=== PATIENT | female | born 1990 | race Caucasian/White ===

== ENCOUNTER 2023-11-25 20:17 | Emergency (ER) | payer SELFPAY ==
[2023-11-25 20:43] VITALS: BP 114/79; PULSE 85; RESP 16; TEMP 37; O2SAT 98; BMI 21.1
[2023-11-25] MEDS: lidocaine 2% INJ 20 mL INJECTION (22:25)
[2023-11-25] MEDS: tetanus-dipt-pertussis 0.5 mL SDV IM (22:25)
[2023-11-25] MEDS: cephALEXin 500 mg Capsule PO (22:25)
--- NOTE | 2023-11-25 22:28 | PC.NURSE ---
wound cleaned with sterile water/ betadine/ 4x4s.
--- NOTE | 2023-11-25 22:43 | ED_ITS ---
HPI - Wound/Laceration General: Chief Complaint: Wound/Laceration Stated Complaint: Left hand wound Time Seen by Provider: 11/25/23 21:59 Source: patient Mode of arrival: ambulatory Limitations: no limitations History of Present Illness: Patient is a 33-year-old female present to the emergency department for laceration to right hand. Reports tetanus not up-to-date. States she cut it on bowl and the hatchet, no foreign body or contamination noted on arrival. She is denying any other symptoms at this time. Has not taken anything for pain. No distal sensory changes or active bleeding at this time. Onset (ago): hour(s) Extremity Location: Left: hand Patient tetanus UTD: No Context: accidental Associated symptoms: Denies chills, fever(s), nausea or vomiting Related Data Previous Rx's Medication Instructions Recorded cephalexin 500 mg capsule 500 mg PO BID 7 days #14 caps 11/25/23 Allergies Allergy/AdvReac Type Severity Reaction Status Date / Time No Known Allergies Allergy Verified 11/25/23 20:49 Review of Systems General: Reports: 10 or more systems reviewed and unremarkable except in HPI and below Const: Denies: fever(s) or chills Card: Denies: chest pain Resp: Denies: dyspnea GI: Denies: abdominal pain, nausea, vomiting or diarrhea Musc: Denies: extremity pain or joint pain Skin/Breast: Reports: new lesions (Laceration dorsal right hand); Denies: rash, skin pain or skin tenderness Neuro: Denies: headache(s) [facility] ED Female Reproductive History: Date of last menstrual period: 11/23/23 Physical Exam Const: COMMON NORMALS: no acute distress, average body habitus, patient oriented x3, no limitations, healthy appearing, alert and well nourished HENMT: COMMON NORMALS: normocephalic and atraumatic HEAD & SCALP: normocephalic and atraumatic Neck/C-Spine: COMMON NORMALS: full ROM, no lymphadenopathy, supple and no meningeal signs Resp: COMMON NORMALS: normal respiratory effort, No use of accessory muscles and clear to auscultation bilaterally AUSCULTATION: clear to auscultation bilaterally Cardio: COMMON NORMALS: regular rate and regular rhythm RATE: regular rate RHYTHM: regular rhythm Extremity: COMMON NORMALS: full ROM and capillary refill normal Neuro: COMMON NORMALS: patient oriented x3 SENSORIUM/ORIENTATION: Yes alert MENINGEAL SIGNS: Yes no meningeal signs Skin: COMMON NORMALS: turgor normal NARRATIVE SKIN EXAM: 3 to 4 cm curvilinear laceration with fl ap to dorsal aspect of patient's right hand, overlying the second MCP. There is no active bleeding or contamination. GENERAL SKIN EXAM: turgor normal Procedures Laceration Laceration 1: Site: hand Side (If applicable): right Size (cm): 3 Description: flap Depth: simple, single layer Local Anesthetic: lidocaine 2% Amount of anesthesia used (mL): 2 Pre-repair: wound explored and irrigated extensively Skin layer closed with: other (Prolene) Size (cm): 4-0 Number of sutures: 5 Technique: simple, interrupted Course Vital Signs: Vital signs: Vital Signs Temperature 98.6 F 11/25/23 20:43 Pulse Rate 85 11/25/23 20:43 Respiratory Rate 16 11/25/23 20:43 Blood Pressure 114/79 11/25/23 20:43 Pulse Oximetry 98 11/25/23 20:43 MDM - Wound/Laceration Medical Decision Making Patient had laceration that was repaired here in the emergency department. Her tetanus was updated as well. Wound cleaned with Betadine and normal saline, and wound care instructions discussed. She is to have the sutures out in 5 to 7 days and will also be started on Keflex due to the laceration of the hand. Return precautions given. No radiology studies performed this visit Discharge Plan Discharge Patient Disposition: Home Clinical Impression: Laceration of right hand Condition: Stable Prescriptions: New cephalexin 500 mg capsule 500 mg PO BID 7 Days Qty: 14 0RF Discharge Orders: Discharge ED (Routine); Ordered 11/25/23 Ordered By: Ashkan Patel Patient Instructions: Laceration (ED), Pain Management Activity Restrictions/Additional Instructions: Sutures out in 5-7 days. Take antibiotics as prescribed. You may apply ice for added relief. Take Tylenol and ibuprofen. Monitor for any signs of infection and return as needed. Coding Level of Care Code ED Data Support Analyst for Sascha De La Rosa
[2023-11-25 22:46] VITALS: BP 117/73; PULSE 82; RESP 16; O2SAT 99
== END 2023-11-25 22:47 | disposition home or self-care (01) ==
PROVIDERS: Emergency Provider Physician Assistant
DX: S61.411A Laceration without foreign body of right hand, initial encounter (principal); W26.9XXA Contact with unspecified sharp object(s), initial encounter; Z23 Encounter for immunization
CPT/HCPCS: 12002; 90471; 90715; 99283